=== PATIENT | male | born 1960 | race Caucasian/White ===

== ENCOUNTER 2022-02-01 14:37 | Emergency (ER) | payer BC ==
[2022-02-01 16:25] LABS: ESTIMATED GFR 85 mL/min (>60); TROPONIN I HIGH SENSITIVITY 19.6 pg/mL (<=60.3)
[2022-02-01 16:40] LABS: CORONAVIRUS COVID-19 NAA NEGATIVE (NEGATIVE)
== END 2022-02-01 17:57 | disposition home or self-care (01) ==
LOC: JP.ED 14:37
DX: R00.2 Palpitations (principal); E78.00 Pure hypercholesterolemia, unspecified; Z20.822 Contact with and (suspected) exposure to COVID-19; Z79.899 Other long term (current) drug therapy
CPT/HCPCS: 0241U; 36415; 71046; 80053; 83605; 84484; 85025; 93005; 99285; 93010; 99283